=== PATIENT | male | born 1995 | race Caucasian/White ===

== ENCOUNTER 2017-02-18 16:31 | Emergency (ER) | payer BC ==
[2017-02-18 16:43] VITALS: BP 145/91; BMI 31.2
[2017-02-18] MEDS ORDERED: DECADRON INJ IV ONE (17:21)
[2017-02-18] MEDS ORDERED: TORADOL 30 MG VIAL IVP ONE (17:21)
[2017-02-18] MEDS ORDERED: NS 500 ML IV 500 ML IV ONE (17:21)
[2017-02-18] MEDS ORDERED: PHENERGAN INJ 25 MG IV ONE (17:21)
--- NOTE | 2017-02-18 17:21 | DR.GENAD ---
HPI - PCP Primary Care Physician: MICHELLE HAND - Complaint/Symptoms Chief Complaint Doctors Comments: Patient admits to migraine since [age] years of age, mon with migraine. Chief Complaint:: CHRONIC MIGRAINES Self Treatment fo Chief Complaint: STATES MIGRAINE IS AFFECTING LEFT EYE CAUSING BLURRY VISION - Source History Provided: Patient - Mode of Arrival Mode of Arrival: Ambulatory - Timing Onset of Chief Complaint: 02/15/17 PMH - PMH Past Medical History: Yes Past Medical History: Migraines, Hypertension Past Surgical History: No Surgical History: No History - Family History History of Family Medical Conditions: Yes Family Medical History: Diabetes Mellitus, Cancer, Coronary Artery Disease, Hypertension - Social History Does patient currently use any type of tobacco product: No Have you used tobacco products in the last 12 months: No Type of Tobacco Use: None Does any household member use tobacco: No Alcohol Use: None Do you use any recreational Drugs:: No Lives With: Dad Lives Where: Home - infectious screening In the last 2 months have you had wt loss of >10#?: NO Have you had fever, night sweats or hemotysis?: No Have you traveled outside the country in the last 6 months?: No Isolation: Standard ROS - Review of Systems Eyes: No Symptoms Reported ENTM: No Symptoms Reported Respiratoy: No Symptoms Reported Cardiovascular: No Symptoms Reported Gastrointestinal/Abdominal: No Symptoms Reported Genitourinary: No Symptoms Reported Neurological: No Symptoms Reported Musculoskeletal: No Symptoms Reported Integumentary: No Symptoms Reported Hematologic/Lymphatic: No Symptoms Reported Endocrine: No Symptoms Reported Psychiatric: No Symptoms Reported All Other Systems: Reviewed and Negative PE - Vital Signs Vitals: Temperature 98.3 F Pulse Rate 79 Respiratory Rate 20 Blood Pressure 145/91 O2 Sat by Pulse Oximetry 98 - General Limitations: No Limitations General Appearance: Alert, In No Apparent Distress - Head Head Exam: Normal Inspection, Atraumatic - Eyes Eye exam: Normal Appearance, PERRL, EOMI - ENT ENT Exam: Normal Exam External Ear Exam: Normal External Inspection TM/Canal Exam: Bilateral Normal Nose Exam: Normal Nose Exam Mouth Exam: Normal Inspection Throat Exam: Normal Inspection - Neck Neck Exam: Normal Inspection, Full ROM - Chest Chest Inspection: Normal Inspection - Respiratory Respiratory Exam: Normal Lung Sounds Bilat Respiratory Exam: Bilateral Clear to Auscultation - Cardiovascular Cardiovascular Exam: Regular Rate - Abdominal Exam Abdominal Exam: Normal Inspection, Normal Bowel Sounds Abdominal Tenderness: negative: RUQ, RLQ, LUQ, LLQ, Epigastrium, Suprapubic, Diffuse, Mild, Moderate, Severe, Other - Extremities Extremities Exam: Normal Inspection, Full ROM - Back Back Exam: Normal Inspection, Full ROM - Neurologic Neurological Exam: Alert, Oriented X3, CN II-XII Intact - Psychiatric Psychiatric Exam: Normal Affect, Normal Mood - Skin Skin Exam: Warm, Dry, Intact Course - Reevaluation 1st: Improved ROR - XRAY XRAY Interpreted by: Radiologist (CT Brain: No acute pathology) - Diagnosis Discharge Problem: Migraine headache Qualifiers: Migraine type: without aura Status migrainosus presence: without status migrainosus Intractability: not intractable Qualified Code(s): G43.009 - Migraine without aura, not intractable, without status migrainosus - Discharge Plan Condition: Stable - Follow ups/Referrals Follow ups/Referrals: NFD,None [Primary Care Provider] - 3 days - Instructions
[2017-02-18] MEDS ORDERED: NS 1000 ML 1,000 ML ONE (17:38)
[2017-02-18] MEDS ORDERED: TORADOL 30 MG VIAL ONE (17:38)
[2017-02-18] MEDS ORDERED: DECADRON INJ ONE (17:38)
[2017-02-18] MEDS ORDERED: PHENERGAN INJ 25 MG ONE (17:38)
--- NOTE | 2017-02-18 18:36 | CT ---
HISTORY: Frontal headache with left-sided blurred vision and dizziness Study: CT brain without contrast Comparison: None Technique: Multiple axial images of the brain were obtained from the skull base to the vertex withou t administration of IV contrast. AEC was utilized. Findings: No acute intraparenchymal hemorrhage or mass can be identified. No extra-axial fluid collections are seen. No alteration in the attenuation of the brain parenchyma can be identified to suggest acute o r subacute ischemic change. The ventricular system is symmetric and nondilated. The extracranial st ructures are grossly unremarkable. IMPRESSION: No acute intracranial process can be identified. Reported By:
== END 2017-02-18 19:32 | disposition home or self-care (01) ==
LOC: ER 16:47
DX: G43.009 Migraine without aura, not intractable, without status migrainosus (principal)
CPT/HCPCS: 70450; 96365; 96367; 96374; 96375; 99283; A4222; J1100; J1885; J2550

== ENCOUNTER 2017-04-28 13:57 | Emergency (ER) | payer BC ==
[2017-04-28 14:06] VITALS: BP 131/82; BMI 31.2
--- NOTE | 2017-04-28 16:23 | DR.GENAD ---
HPI - PCP Primary Care Physician: SIERRA - Complaint/Symptoms Chief Complaint Doctors Comments: Patient reports headache, myalgias, sinus congestion for four days. Chief Complaint:: "THROAT HURTING FOR 4 DAYS AND FLU LIKE SYM" - Source History Provided: Patient - Mode of Arrival Mode of Arrival: Ambulatory - Timing Onset of Chief Complaint: 04/25/17 PMH - PMH Past Medical History: Yes Past Medical History: Migraines, Hypertension Past Surgical History: No Surgical History: No History - Family History History of Family Medical Conditions: Yes Family Medical History: Diabetes Mellitus, Cancer, Coronary Artery Disease, Hypertension - Social History Does patient currently use any type of tobacco product: No Have you used tobacco products in the last 12 months: No Type of Tobacco Use: None Does any household member use tobacco: No Do you use any recreational Drugs:: No Lives With: Family Lives Where: Home - infectious screening In the last 2 months have you had wt loss of >10#?: NO Have you had fever, night sweats or hemotysis?: No Have you traveled outside the country in the last 6 months?: No Isolation: Standard ROS - Review of Systems Eyes: No Symptoms Reported ENTM: No Symptoms Reported Respiratoy: No Symptoms Reported Cardiovascular: No Symptoms Reported Gastrointestinal/Abdominal: No Symptoms Reported Genitourinary: No Symptoms Reported Neurological: No Symptoms Reported Musculoskeletal: No Symptoms Reported Integumentary: No Symptoms Reported Hematologic/Lymphatic: No Symptoms Reported Endocrine: No Symptoms Reported Psychiatric: No Symptoms Reported All Other Systems: Reviewed and Negative PE - Vital Signs Vitals: Temperature 97.8 F Pulse Rate 81 Respiratory Rate 18 Blood Pressure 131/82 O2 Sat by Pulse Oximetry 98 - General Limitations: No Limitations General Appearance: Alert, In No Apparent Distress - Head Head Exam: Normal Inspection, Atraumatic - Eyes Eye exam: Normal Appearance, PERRL, EOMI - ENT ENT Exam: Normal Exam External Ear Exam: Normal External Inspection TM/Canal Exam: Bilateral Normal Nose Exam: Normal Nose Exam Mouth Exam: Normal Inspection Throat Exam: Normal Inspection - Neck Neck Exam: Normal Inspection, Full ROM - Chest Chest Inspection: Normal Inspection - Respiratory Respiratory Exam: Normal Lung Sounds Bilat Respiratory Exam: Bilateral Clear to Auscultation - Cardiovascular Cardiovascular Exam: Regular Rate, Normal Rhythm - Abdominal Exam Abdominal Exam: Normal Inspection Abdominal Tenderness: negative: RUQ, RLQ, LUQ, LLQ, Epigastrium, Suprapubic, Diffuse, Mild, Moderate, Severe, Other - Extremities Extremities Exam: Normal Inspection, Full ROM - Back Back Exam: Normal Inspection, Full ROM - Neurologic Neurological Exam: Alert, Oriented X3, CN II-XII Intact - Psychiatric Psychiatric Exam: Normal Affect - Skin Skin Exam: Warm, Dry, Intact ROR - Labs Reviewed Laboratory Results Reviewed?: Yes (strep, influenza negative) Laboratory: Influenza Type A (PCR) Negative (NEGATIVE) 04/28/17 14:15 Influenza Type B (PCR) Negative (NEGATIVE) 04/28/17 14:15 Streptococcus Screen Negative (NEGATIVE) 04/28/17 14:15 - Diagnosis Discharge Problem: Influenza-like symptoms - Discharge Plan Condition: Stable - Follow ups/Referrals Follow ups/Referrals: LUISITO ESQUIVEL [Primary Care Provider] - 3 days - Instructions
== END 2017-04-28 16:33 | disposition home or self-care (01) ==
LOC: ER 13:57
DX: J11.1 Influenza due to unidentified influenza virus with other respiratory manifestations (principal)
CPT/HCPCS: 87070; 87502; 87880; 99282; 99283